=== PATIENT | male | born 1950 | race Caucasian/White ===

== ENCOUNTER 2018-12-25 14:03 | Outpatient (CLI) | payer MEDICARE, BC | END 2018-12-25 23:59 | disposition home or self-care (01) | LOC: RAD 14:03 | PROVIDERS: ATTEND Family Medicine | DX: R13.14 Dysphagia, pharyngoesophageal phase (principal) | CPT/HCPCS: 74230 ==

== ENCOUNTER 2020-01-09 12:18 | Day surgery (SDC) | payer MEDICARE, BC ==
[2020-01-09] VITALS (10 sets, daily range): BP systolic 107–141; BP diastolic 64–86
[~2020-01-09] VITALS: Ht 190.5 cm; Wt 96.9 kg
[2020-01-09] MEDS ORDERED: normal saline 1,000 ML IV SCH (12:35)
[2020-01-09] MEDS ORDERED: diphenhydrAMINE 25mg capsule PO PRN (12:35)
[2020-01-09] MEDS ORDERED: LIDOcaine/PRILOcaine 5gm cream TP ONE (12:45)
[2020-01-09] MEDS ORDERED: GABA300C PO (13:15)
[2020-01-09] MEDS ORDERED: ASPI-1265 PO (13:15)
[2020-01-09] MEDS ORDERED: CITA20TA28 PO (13:15)
[2020-01-09] MEDS ORDERED: ATOR40TA PO (13:15)
[2020-01-09] MEDS ORDERED: FLEC100T (13:15)
[2020-01-09] MEDS ORDERED: CHOL400T57 PO (13:15)
[2020-01-09] MEDS ORDERED: TRAM50TA2 PO (13:15)
[2020-01-09] MEDS ORDERED: VITA-268 PO (13:15)
[2020-01-09] MEDS ORDERED: NAPR220T67 PO (13:15)
[2020-01-09] MEDS ORDERED: VITA-134 (13:15)
[2020-01-09] MEDS ORDERED: HYDR25TA4 PO (13:15)
[2020-01-09] MEDS ORDERED: IRBE300T18 PO (13:15)
[2020-01-09 13:20] LABS: BASOPHILS # (AUTO) 0.1 X10'3 (0-0.2); BASOPHILS % (AUTO) 1.3 % (0-1); EOSINOPHILS # (AUTO) 0.3 X10'3 (0-0.9); EOSINOPHILS % (AUTO) 3.5 % (0-6); HEMATOCRIT 42.3 % (42.0-52.0); HEMOGLOBIN 14.4 g/dl (14.0-17.9); LYMPHOCYTES # (AUTO) 1.7 X10'3 (1.1-4.8); LYMPHOCYTES % (AUTO) 23.5 % (21-51); MEAN CORPUSCULAR HEMOGLOBIN 33.4 PG (27.0-31.0); MEAN CORPUSCULAR VOLUME 98.1 FL (78-98); MEAN PLATELET VOLUME 8.2 FL (7.4-10.4); MONOCYTES # (AUTO) 0.5 X10'3 (0-0.9); MONOCYTES % (AUTO) 7.1 % (2-12); NEUTROPHILS # (AUTO) 4.7 X10'3 (1.8-7.7); NEUTROPHILS % (AUTO) 64.6 % (42-75); PLATELET COUNT 191 X10'3 (140-440); RED BLOOD COUNT 4.31 X10'6 (4.70-6.10); RED CELL DISTRIBUTION WIDTH 12.7 % (11.5-14.5); WHITE BLOOD COUNT 7.3 X10'3 (4.5-11.0)
[2020-01-09 13:22] LABS: ANION GAP 9 (8-16); BLOOD UREA NITROGEN 20 MG/DL (7-18); CALCIUM 8.9 MG/DL (8.5-10.1); CHLORIDE 105 MMOL/L (99-107); CREATININE 0.77 MG/DL (0.60-1.10); GLUCOSE 89 MG/DL (70-104); MAGNESIUM 1.7 MG/DL (1.5-2.4); POTASSIUM 4.1 MMOL/L (3.5-5.1); SODIUM 140 MMOL/L (135-145); TOTAL CARBON DIOXIDE 26.5 MMOL/L (24-32); eGFR > 90 ML/MIN
[2020-01-09] MEDS ORDERED: PREG50CA64 PO (13:23)
[2020-01-09] MEDS ORDERED: iohexol 350 MG/ML 50ML vial IV ONE (14:42)
[2020-01-09] MEDS ORDERED: midazolam 2 mg/2 ml injection ONE ×3 (14:42→15:59)
[2020-01-09] MEDS ORDERED: LIDOcaine 1% (10mg/ml)w/preservative injection 20ml MDV ONE (14:42)
[2020-01-09] MEDS ORDERED: fentaNYL/PF 50MCG/1 ML 2ML syringe ONE (14:42)
[2020-01-09] MEDS ORDERED: iohexol 350MG/ML 100ml bottle IV ONE ×2 (14:42→15:34)
[2020-01-09] MEDS ORDERED: verapamil 2.5 mg/ml inj IV ONE (15:04)
[2020-01-09] MEDS ORDERED: nitroGLYCERIN-Tridil 50MG/D5W 250 ML IV ONE (15:04)
[2020-01-09] MEDS ORDERED: heparin 1,000unit/ml 10ml vial 10 ML ONE (15:16)
[2020-01-09] MEDS ORDERED: atropine 0.1mg/ml 10ml syringe ONE (15:57)
[2020-01-09] MEDS ORDERED: ticagrelor 90mg tablet ONE (16:17)
[2020-01-09] MEDS ORDERED: proCHLORperazine 10 MG/2 ml inj IV PRN (17:00)
[2020-01-09] MEDS ORDERED: ondansetron/PF 4mg/2ml inj IV PRN (17:00)
[2020-01-09] MEDS ORDERED: HYDROcodone/acetaminophen 10/325mg tab PO PRN (17:00)
[2020-01-09] MEDS ORDERED: normal saline 1000ml 1,000 ML IV SCH (17:00)
[2020-01-09] MEDS ORDERED: HYDROcodone/acetaminophen 5mg/325mg tablet PO PRN (17:00)
[2020-01-09] MEDS ORDERED: ticagrelor 90mg tablet PO ONE (17:15)
== END 2020-01-09 19:31 | disposition home or self-care (01) ==
LOC: SSTAY O 12:18
PROVIDERS: ATTEND Internal Medicine Cardiovascular Disease
DX: R94.39 Abnormal result of other cardiovascular function study (principal); I25.119 Atherosclerotic heart disease of native coronary artery with unspecified angina pectoris; I48.0 Paroxysmal atrial fibrillation; I10 Essential (primary) hypertension; E78.00 Pure hypercholesterolemia, unspecified; G47.30 Sleep apnea, unspecified; Z79.899 Other long term (current) drug therapy; Z79.82 Long term (current) use of aspirin; Z98.890 Other specified postprocedural states; Z96.653 Presence of artificial knee joint, bilateral; Z98.1 Arthrodesis status; Z89.429 Acquired absence of other toe(s), unspecified side
CPT/HCPCS: 36415; 80048; 83735; 85025; 85610; 93458; 99152; 99153; C1725; C1751; C1760; C1769; C1874; C1894; C9600; J0461; J1644; J2001; J2250; J3010; J7030; Q0163; Q9967; A4620; A5120; A6258; J3490

== ENCOUNTER 2023-08-10 11:20 | Day surgery (SDC) | payer MEDICARE, BC ==
[~2023-08-10] VITALS: Ht 182.9 cm; Wt 97.4 kg
[2023-08-10] VITALS (9 sets, daily range): BP systolic 104–137; BP diastolic 46–83; PULSE 61–86; RESP 14–16; TEMP 98; O2SAT 94–96
[~2023-08-10 11:20] MED LIST: ASPI-1265 PO; ATOR40TA PO; CHOL400T57 PO; CITA20TA28 PO; FLEC100T; GABA300C PO; HYDR25TA4 PO; IRBE300T26 PO; NAPR220T67 PO; PREG50CA65 PO; TRAM50TA2 PO; VITA-268 PO; VITA-288
[2023-08-10] MEDS ORDERED: ATOR40TA71 PO (11:53)
[2023-08-10] MEDS ORDERED: IRBE150T51 PO (11:53)
[2023-08-10] MEDS ORDERED: vitamin D3 (11:53)
[2023-08-14 19:15] LABS: IMMUNOGLOBULIN G, QN CSF 3.8 mg/dL (0.0-10.3)
[2023-08-15 13:24] LABS: LYME IGG P18 AB Absent (.); LYME IGG P23 AB Absent (.); LYME IGG P28 AB Absent (.); LYME IGG P30 AB Absent (.); LYME IGG P39 AB Absent (.); LYME IGG P41 AB Absent (.); LYME IGG P45 AB Absent (.); LYME IGG P58 AB Absent (.); LYME IGG P66 AB Absent (.); LYME IGG P93 AB Absent (.); LYME IGG WB INTERP Negative (.); LYME IGM P23 AB Absent (.); LYME IGM P39 AB Absent (.); LYME IGM P41 AB Absent (.); LYME IGM WB INTERP Negative (.)
[2023-08-16 14:31] LABS: VDRL, CSF Non Reactive (Non Rea:<1:1)
== END 2023-08-10 16:35 | disposition home or self-care (01) ==
LOC: SSTAY O 11:20
PROVIDERS: ATTEND Psychiatry & Neurology Neurology
DX: R41.3 Other amnesia (principal)
CPT/HCPCS: 36415; 62328; 82040; 82042; 82784; 83873; 83916; 86592; 86617

== ENCOUNTER 2024-10-03 06:51 | Day surgery (SDC) | payer MEDICARE, BC ==
[~2024-10-03] VITALS: Ht 182.9 cm; Wt 88.5 kg
[~2024-10-03 06:51] MED LIST changes: -ATOR40TA PO; +ATOR40TA71 PO; -CHOL400T57 PO; +CITA-178 PO; -CITA20TA28 PO; -GABA300C PO; -HYDR25TA4 PO; +IRBE150T51 PO; -PREG50CA65 PO; -VITA-288; +vitamin D3
--- NOTE | 2024-10-03 07:29 | ELECTROCARDIOGRAPH REPORT ---
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 CATRINA Colmenares Measurements Intervals [place] Rate: 49 P: 35 MO: 187 QRS: 27 QRSD: 99 T: 20 QT: 444 QTc: 401 Interpretive Statements Sinus bradycardia Electronically Signed On 10-03-2024 20:20:[address] CATRINA Colmenares Please click the below link to view image of tracing.
[2024-10-03 07:40] VITALS: BP 126/65; PULSE 50; RESP 16; TEMP 99.3; O2SAT 97
[2024-10-03] MEDS ORDERED: normal saline 1000ml 1,000 ML IV PRN (08:10)
[2024-10-03 08:11] LABS: MEAN PLATELET VOLUME 8.5 FL (7.4-10.4); RED CELL DISTRIBUTION WIDTH 13.3 % (11.5-14.5)
[2024-10-03 08:32] LABS: CREATININE 0.99 MG/DL (0.60-1.10); TOTAL CARBON DIOXIDE 30.9 MMOL/L (24-32); eCRCL 71 ML/MIN; eGFR 74 ML/MIN
[2024-10-03 08:34] LABS: APTT 25 SECONDS (22-32); INR 1.1 INR
[2024-10-03] MEDS ORDERED: FLEC100T PO (08:48)
[2024-10-03] MEDS ORDERED: DONE10TA19 PO (08:48)
[2024-10-03] MEDS ORDERED: EZET10TA6 PO (08:48)
[2024-10-03] MEDS ORDERED: TADA5TAB2 PO (08:48)
[2024-10-03] MEDS ORDERED: CHOL200077 PO (08:48)
[2024-10-03] MEDS ORDERED: ESCI20TA39 PO (08:48)
[2024-10-03] MEDS ORDERED: HYDR12.55 PO (08:48)
[2024-10-03] MEDS ORDERED: ROSU40TA89 PO (08:48)
[2024-10-03] MEDS ORDERED: TRAZ-251 PO (08:48)
[2024-10-03] MEDS ORDERED: LIDOcaine 1% W/epiNEPHrine 1:100,000 20ml vial ONE (09:12)
[2024-10-03] MEDS ORDERED: midazolam 1 mg/ML 2ml injection ONE (09:12)
[2024-10-03] MEDS ORDERED: fentaNYL/PF 50MCG/1 ML 2ML syringe ONE (09:12)
[2024-10-03 10:06] VITALS: BP 114/63; PULSE 60; RESP 11
[2024-10-03 10:15] VITALS: BP 115/64; PULSE 59; RESP 14
[2024-10-03 10:30] VITALS: BP 116/66; PULSE 51; RESP 9; O2SAT 98
[2024-10-03 10:45] VITALS: BP 122/79; PULSE 57; RESP 14; O2SAT 97
[2024-10-03] MEDS ORDERED: ondansetron/PF 4mg/2ml inj IV PRN (11:10)
[2024-10-03] MEDS ORDERED: HYDROcodone/acetaminophen 5mg/325mg tablet PO PRN (11:15)
[2024-10-03] MEDS ORDERED: HYDROcodone/acetaminophen 10/325mg tab PO PRN (11:15)
--- NOTE | 2024-10-03 20:18 | CARDIOLOGY REPORT ---
DATE OF SERVICE: 10/03/2024 DICTATING PHYSICIAN: LADONNA GAVIRIA DO CARDIAC CATHETERIZATION REPORT PROCEDURE: Implantation of a rhythm loop recorder (LINQ). PREOPERATIVE DIAGNOSES: * History of atrial fibrillation. POSTOPERATIVE DIAGNOSES: * History of atrial fibrillation. HISTORY: This 74-year-old man who has had previous atrial fibrillation, which has been remarkably well controlled with continuous use of flecainide. He has been very careful about the consumption of caffeine and alcoholic beverages. He in the near future will be receiving treatment for a cerebral disorder at [facility]. They have requested continuous monitoring for 14 days. He had a try at having recordings with a Zio patch, but he had a marked allergic reaction to the glue of the patch itself. For that reason, he has been referred for the loop recorder. DESCRIPTION OF PROCEDURE: The patient was sedated with fentanyl and Versed. He was then prepared and draped in the usual manner. The interspace between the third and fourth ribs was anesthetized with 1% lidocaine containing a 1:100,000 mixture of epinephrine. A 0.5 cm incision was made diagonally across the interspace. The loop recorder was then injected into the subcutaneous space and the incision was closed with two 4-0 Monocryl sutures. ESTIMATED BLOOD LOSS: Less than 5 mL. COMPLICATIONS: No complications. PLAN: Please see the [employer] record for initial settings on the device. LADONNA GAVIRIA DO TID: [id number] RECEIPT: [id number] [place]
== END 2024-10-03 11:00 | disposition home or self-care (01) ==
LOC: SSTAY O 06:51
PROVIDERS: ATTEND Internal Medicine Cardiovascular Disease
DX: I48.0 Paroxysmal atrial fibrillation (principal); I25.10 Atherosclerotic heart disease of native coronary artery without angina pectoris; R41.1 Anterograde amnesia; E78.00 Pure hypercholesterolemia, unspecified; I10 Essential (primary) hypertension; M47.22 Other spondylosis with radiculopathy, cervical region; Z79.899 Other long term (current) drug therapy; Z98.890 Other specified postprocedural states
CPT/HCPCS: 33285; 36415; 80048; 83735; 85025; 85610; 85730; 93005; 99152; A6258; A6402; C1764; J2250; J3010; J3490; J7030; Z7610; A6449